=== PATIENT | male | born 1955 | race Caucasian/White ===

== ENCOUNTER 2019-03-13 12:41 | Emergency (ER) | payer OTHER ==
[~2019-03-13] VITALS: Ht 172.7 cm; Wt 64.9 kg
[~2019-03-13 12:41] MED LIST: AMOX500C2 PO; PRED20TA PO; TRAM50TA2 PO
[2019-03-13 13:02] VITALS: BP 166/72; PULSE 71; RESP 18; Ht 172.7 cm; Wt 64.9 kg
== END 2019-03-13 15:50 | disposition home or self-care (01) ==
LOC: FTE 12:41
DX: H90.5 Unspecified sensorineural hearing loss (principal); I10 Essential (primary) hypertension; E11.9 Type 2 diabetes mellitus without complications
CPT/HCPCS: 99283